=== PATIENT | male | born 1995 | race Caucasian/White ===

== ENCOUNTER 2017-02-27 06:09 | Emergency (ER) | payer SELFPAY ==
[~2017-02-27] VITALS: Ht 172.7 cm; Wt 68.0 kg
[2017-02-27 06:10] VITALS: BP 139/75; PULSE 87; RESP 16; TEMP 98.8; O2SAT 96
[2017-02-27] MEDS ORDERED: IBUP800T23 PO (06:42)
[2017-02-27] MEDS ORDERED: CYCL1TAB29 PO (06:42)
--- NOTE | 2017-02-27 06:42 | PD ---
HPI Chief Complaint: Injury Time Seen by Provider: 06:37 Travel History International Travel<30 days: No Contact w/Intl Traveler<30days: No Traveled to known affect area: No History of Present Illness HPI Patient is a 21-year-old male presenting to emergency department for evaluation of right knee pain. Patient injured his knee 3 days ago, he states that he bent down and his butt touched the back of his knee. Since that time if he tries to stretch his knee he has pain afterward for several minutes. The pain is a 6 out of 10 when it occurs. He is able to ambulate without difficulty. He has not taken any medications to alleviate the pain. He denies any swelling , redness, warmth. He denies any weakness in his lower extremities. [facility] Past Medical History Medical History: Denies Significant Hx Diminished Hearing: No Immunizations Current: Yes Past Surgical History Surgical History: No Previous Surgery Social History Alcohol Use: No Tobacco Use: No Substance Use: No Allergies-Medications (Allergen,Severity, Reaction): Coded Allergies: No Known Allergies (Unverified , 02/27/17) Reported Meds & Prescriptions Reported Meds & Active Scripts Active No Active Prescriptions or Reported Medications Review of Systems Except as stated in HPI: all other systems reviewed are Neg Musculoskeletal: Positive: Myalgias, Arthralgias, Pain Physical Exam Narrative GENERAL: Well-developed, well-nourished, alert male. Resting comfortably in no acute distress. SKIN: Warm and dry. HEAD: Normocephalic. EYES: No scleral icterus. No injection or drainage. NECK: Supple, trachea midline. No JVD or lymphadenopathy. CARDIOVASCULAR: Regular rate and rhythm without murmurs, gallops, or rubs. RESPIRATORY: Breath sounds equal bilaterally. No accessory muscle use. GASTROINTESTINAL: Abdomen soft, non-tender, nondistended. MUSCULOSKELETAL: No cyanosis, or edema. No obvious deformities noted to bilateral lower extremities. Full range of motion in right knee. No tenderness to palpation. Patient is neurovascularly intact. BACK: Nontender without obvious deformity. No CVA tenderness. Data Data Last Documented VS Vital Signs Date Time Temp Pulse Resp B/P (MAP) Pulse Ox O2 Delivery O2 Flow Rate FiO2 02/27/17 06:26 20 100 Room Air 02/27/17 06:10 98.8 87 139/75 (96) MDM Medical Decision Making Medical Screen Exam Complete: Yes Emergency Medical Condition: Yes Interpretation(s) Vital Signs Date Time Temp Pulse Resp B/P (MAP) Pulse Ox O2 Delivery O2 Flow Rate FiO2 02/27/17 06:26 20 100 Room Air 02/27/17 06:10 98.8 87 16 139/75 (96) 96 Room Air Differential Diagnosis Strain versus strain versus spasm versus less likely fracture Narrative Course Patient is a 21-year-old male presenting to the emergency department for evaluation of right knee pain is been ongoing for 3 days. There was no significant injury however patient stretched and since that time he's had pain. He has not tried any [id number] medications nor has he been applying heat or ice. Patient was encouraged to take ibuprofen as needed and as directed for pain, continue range of motion exercises, apply warm moist heat to affected area. He was encouraged follow-up with primary doctor or at the [facility]. He was encouraged return to emergency department if needed for any new or worsening symptoms. Patient verbalized understanding of instructions. Patient is stable for discharge. Diagnosis Primary Impression: Knee sprain Qualified Codes: S83.91XA - Sprain of unspecified site of right knee, initial encounter Referrals: [facility] Primary Care Physician Patient Instructions: General Instructions, Knee Exercises (GEN), Knee Sprain ( ED) Additional Instructions: Apply warm heat to the affected area, continue gentle range of motion exercises , avoid exacerbating activities Take medications as directed Follow-up with your primary doctor or at the [facility] Return to emergency department if needed for any new or worsening symptoms Med/Other Pt SpecificInfo: Prescription(s) given Scripts Cyclobenzaprine (Flexeril) 10 Mg Tab 10 MG PO TID Y for MUSCLE SPASM, #21 TAB 0 Refills Prov: June Barnhart 02/27/17 Ibuprofen (Ibuprofen) 800 Mg Tab 800 MG PO Q6HR Y for PAIN, #40 TAB 0 Refills Prov: June Barnhart 02/27/17 Disposition: 01 DISCHARGE HOME Condition: Stable June Barnhart Feb 27, 2017 06:42
--- NOTE | 2017-02-27 06:42 | PD ---
HPI Chief Complaint: Injury Time Seen by Provider: 06:37 Travel History International Travel<30 days: No Contact w/Intl Traveler<30days: No Traveled to known affect area: No History of Present Illness HPI Patient is a 21-year-old male presenting to emergency department for evaluation of right knee pain. Patient injured his knee 3 days ago, he states that he bent down and his butt touched the back of his knee. Since that time if he tries to stretch his knee he has pain afterward for several minutes. The pain is a 6 out of 10 when it occurs. He is able to ambulate without difficulty. He has not taken any medications to alleviate the pain. He denies any swelling , redness, warmth. He denies any weakness in his lower extremities. [facility] Past Medical History Medical History: Denies Significant Hx Diminished Hearing: No Immunizations Current: Yes Past Surgical History Surgical History: No Previous Surgery Social History Alcohol Use: No Tobacco Use: No Substance Use: No Allergies-Medications (Allergen,Severity, Reaction): Coded Allergies: No Known Allergies (Unverified , 02/27/17) Reported Meds & Prescriptions Reported Meds & Active Scripts Active No Active Prescriptions or Reported Medications Review of Systems Except as stated in HPI: all other systems reviewed are Neg Musculoskeletal: Positive: Myalgias, Arthralgias, Pain Physical Exam Narrative GENERAL: Well-developed, well-nourished, alert male. Resting comfortably in no acute distress. SKIN: Warm and dry. HEAD: Normocephalic. EYES: No scleral icterus. No injection or drainage. NECK: Supple, trachea midline. No JVD or lymphadenopathy. CARDIOVASCULAR: Regular rate and rhythm without murmurs, gallops, or rubs. RESPIRATORY: Breath sounds equal bilaterally. No accessory muscle use. GASTROINTESTINAL: Abdomen soft, non-tender, nondistended. MUSCULOSKELETAL: No cyanosis, or edema. No obvious deformities noted to bilateral lower extremities. Full range of motion in right knee. No tenderness to palpation. Patient is neurovascularly intact. BACK: Nontender without obvious deformity. No CVA tenderness. Data Data Last Documented VS Vital Signs Date Time Temp Pulse Resp B/P (MAP) Pulse Ox O2 Delivery O2 Flow Rate FiO2 02/27/17 06:26 20 100 Room Air 02/27/17 06:10 98.8 87 139/75 (96) MDM Medical Decision Making Medical Screen Exam Complete: Yes Emergency Medical Condition: Yes Interpretation(s) Vital Signs Date Time Temp Pulse Resp B/P (MAP) Pulse Ox O2 Delivery O2 Flow Rate FiO2 02/27/17 06:26 20 100 Room Air 02/27/17 06:10 98.8 87 16 139/75 (96) 96 Room Air Differential Diagnosis Strain versus strain versus spasm versus less likely fracture Narrative Course Patient is a 21-year-old male presenting to the emergency department for evaluation of right knee pain is been ongoing for 3 days. There was no significant injury however patient stretched and since that time he's had pain. He has not tried any [id number] medications nor has he been applying heat or ice. Patient was encouraged to take ibuprofen as needed and as directed for pain, continue range of motion exercises, apply warm moist heat to affected area. He was encouraged follow-up with primary doctor or at the [facility]. He was encouraged return to emergency department if needed for any new or worsening symptoms. Patient verbalized understanding of instructions. Patient is stable for discharge. Diagnosis Primary Impression: Knee sprain Qualified Codes: S83.91XA - Sprain of unspecified site of right knee, initial encounter Referrals: [facility] Primary Care Physician Patient Instructions: General Instructions, Knee Exercises (GEN), Knee Sprain ( ED) Additional Instructions: Apply warm heat to the affected area, continue gentle range of motion exercises , avoid exacerbating activities Take medications as directed Follow-up with your primary doctor or at the [facility] Return to emergency department if needed for any new or worsening symptoms Med/Other Pt SpecificInfo: Prescription(s) given Scripts Cyclobenzaprine (Flexeril) 10 Mg Tab 10 MG PO TID Y for MUSCLE SPASM, #21 TAB 0 Refills Prov: June Barnhrat 02/27/17 Ibuprofen (Ibuprofen) 800 Mg Tab 800 MG PO Q6HR Y for PAIN, #40 TAB 0 Refills Prov: June Barnhart 02/27/17 Disposition: 01 DISCHARGE HOME Condition: Stable June Barnhart Feb 27, 2017 06:42
== END 2017-02-27 07:06 | disposition home or self-care (01) ==
LOC: NEPD 06:09
DX: S83.91XA Sprain of unspecified site of right knee, initial encounter (principal); X50.0XXA Overexertion from strenuous movement or load, initial encounter
CPT/HCPCS: 99283